=== PATIENT | female | born 2000 | race Caucasian/White ===

== ENCOUNTER 2018-07-19 19:13 | Emergency (ER) | payer MEDICAID ==
[~2018-07-19] VITALS: Ht 160 cm; Wt 62.6 kg
[2018-07-19 19:30] VITALS: BP_SYST 114
--- NOTE | 2018-07-19 19:35 | NUR ---
Pt to waiting room with friend in stable condition.
--- NOTE | 2018-07-19 22:00 | NUR ---
Pt denies c/o pain or discomfort, bleeding to lac site controlled. NAD, VSS.
--- NOTE | 2018-07-19 22:56 | NUR ---
Patient to ER bed 3 to gown for evaluation. Side rails up. Report given to Choco DAVIS.
--- NOTE | 2018-07-19 22:58 | NUR ---
2258 - Pt ambulated to ED bed 3 from [facility]. Pt states she was moving a mattress tonight, and has a canopy bed frame, states that one of the wooden boards, fell, and hit her in the head. Pt has a 5-6 cm lac to head, bleeding controlled. A&OX4, denies LOC, denies n/v. Lac cleaned at bedside w/ normal saline and iodine mixture. Awaiting MD mendez.
[2018-07-19] MEDS ORDERED: IBUPROFEN 800 MG TABLET PO ONE (23:30)
[2018-07-20 00:15] VITALS: BP_SYST 105
--- NOTE | 2018-07-20 00:16 | NUR ---
Patient given written and verbal discharge instructions and verbalizes understanding. ER MD discussed with patient the results and treatment provided. Patient in stable condition. ID arm band removed. Rx of ibuprofev given. Patient educated on pain management and to follow up with PMD. Pain Scale 2/10. Opportunity for questions provided and answered. Medication side effect fact sheet provided.
== END 2018-07-20 00:15 | disposition home or self-care (01) ==
LOC: SED 19:13
DX: S01.01XA Laceration without foreign body of scalp, initial encounter (principal); W20.8XXA Other cause of strike by thrown, projected or falling object, initial encounter; Y93.89 Activity, other specified; Y92.89 Other specified places as the place of occurrence of the external cause; Y99.8 Other external cause status
CPT/HCPCS: 99283